=== PATIENT | female | born 1970 | race Caucasian/White ===

== ENCOUNTER 2020-01-23 06:51 | Outpatient (NON) | payer OTHER, SELFPAY ==
[2020-01-23 17:23] LABS: SARS-CoV-2 RNA PCR Negative
== END 2020-01-23 06:52 ==
PROVIDERS: Visit Provider Internal Medicine Pulmonary Disease
DX: Z01.818 Encounter for other preprocedural examination (principal); Z20.828 Contact with and (suspected) exposure to other viral communicable diseases
CPT/HCPCS: 87635; C9803; U0003

== ENCOUNTER → 2020-01-23 10:50 | Outpatient (CLI) | payer OTHER, SELFPAY ==
--- NOTE | ~2020-01-23 | XR_ITS ---
EXAMINATION: XR chest 2V EXAM DATE: 01/23/2020 11:03 INDICATION: COPD, SOB, Asthma, Cough, hx of pulmonary nodule . TECHNIQUE: Frontal and lateral projections of the chest obtained and reviewed. Comparison is made to prior examination from 12/20/2018. FINDINGS: The lungs are clear. There are no pleural effusions. The cardiomediastinal silhouette is within normal limits. There is no pneumothorax suspected. The bones and soft tissues are unremarkab le. IMPRESSION: No acute cardiopulmonary findings. Reviewed, dictated and finalized at location B. ENGRAVER
== END ==
PROVIDERS: Visit Provider Internal Medicine Pulmonary Disease
DX: J44.9 Chronic obstructive pulmonary disease, unspecified (principal); J45.909 Unspecified asthma, uncomplicated; R06.02 Shortness of breath; R05 Cough
CPT/HCPCS: 71046

== ENCOUNTER → 2021-01-21 15:45 | Outpatient (CLI) | payer OTHER, SELFPAY ==
--- NOTE | ~2021-01-21 | XR_ITS ---
XR chest 2V DATE: 01/21/2021 16:03 INDICATION: Asthma TECHNIQUE: 2 views COMPARISON: 01/22/2022 view chest FINDINGS: Normal heart size. No hilar or mediastinal enlargement. No pulmonary infiltrate or consolid ation, pleural effusion or pulmonary vascular congestion or pneumothorax. Degenerative spurring of the thoracic spine. IMPRESSION: No active cardiopulmonary disease Reviewed, dictated and finalized at location A.
== END ==
PROVIDERS: Visit Provider Internal Medicine Pulmonary Disease
DX: J45.909 Unspecified asthma, uncomplicated (principal); M47.814 Spondylosis without myelopathy or radiculopathy, thoracic region
CPT/HCPCS: 71046

== ENCOUNTER → 2021-03-22 14:49 | Outpatient (CLI) | payer OTHER, SELFPAY ==
--- NOTE | ~2021-03-22 | XR_ITS ---
EXAMINATION: XR hand LT 2V DATE: 03/22/2021 15:06 INDICATION: Left hand fifth digit pain. TECHNIQUE: 2 views of left hand were obtained. COMPARISON: None. FINDINGS: Bone alignment is normal. There is a chip avulsion fracture of palmar base of fifth middle phalanx. There is a mixed lytic and sclerotic pattern in proximal lunate. There is mild osteoarthriti s of second and third proximal interphalangeal joints and second through fifth distal interphalangeal joints. IMPRESSION: 1. Chip avulsion fracture of palmar base of fifth middle phalanx. 2. Mild polyarticular osteoarthritis. 3. Mixed lytic and sclerotic pattern in proximal lunate, which may be secondary to osteonecrosis or u lnolunate impaction syndrome. 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 Chip avulsion fracture of palmar base of fifth middle phalanx. 2. Mild polyarticular osteoarthritis. 3. Mixed lytic and sclerotic pattern in proximal lunate, which may be secondary to osteonecrosis or ulnolunate impaction syndrome.
== END ==
DX: M19.042 Primary osteoarthritis, left hand (principal)
CPT/HCPCS: 73120

== ENCOUNTER → 2023-01-18 10:55 | Outpatient (CLI) | payer OTHER, SELFPAY ==
--- NOTE | ~2023-01-18 | XR_ITS ---
EXAMINATION: XR chest 2V 01/18/2023 11:20 INDICATION: Shortness of breath. COPD. PROCEDURE: 2 view chest COMPARISON: No prior studies for comparison. FINDINGS: The lungs are clear. The cardiomediastinal silhouette is within normal limits. There are no pleural effusions. There is no pneumothorax suspected. IMPRESSION: 1: NO ACUTE CARDIOPULMONARY DISEASE. Reviewed, dictated and finalized at location B.
== END ==
PROVIDERS: PCP Internal Medicine Pulmonary Disease; Visit Provider Internal Medicine Pulmonary Disease
DX: R06.02 Shortness of breath (principal); J44.9 Chronic obstructive pulmonary disease, unspecified; J45.909 Unspecified asthma, uncomplicated
CPT/HCPCS: 71046